=== PATIENT | male | born 1975 | race Hispanic/Latino ===

== ENCOUNTER 2020-11-15 00:42 | Emergency (ER) | payer SELFPAY ==
[2020-11-15] MEDS ORDERED: ASPIRIN 325 MG TAB PO ONE (01:02)
--- NOTE | 2020-11-15 01:02 | Emergency Department Report ---
ED Chest Pain HPI - General Chief Complaint: Chest Pain Stated Complaint: CHEST PAIN PUI?: No Time Seen by Provider: 11/15/20 00:42 Source: patient, EMS Mode of arrival: Ambulatory Limitations: No Limitations - History of Present Illness Initial Comments: Patient is a 45-year-old male who presents emergency room with complaints of chest pain, shortness of breath and anxiety. Patient states his symptoms started 6 hours ago. Patient states the chest pain is in his bilateral chest. Patient states his symptoms are better with rest and worse with movement and palpation. Patient complains of shortness of breath. Patient states that shortness of breath better with rest and worse with exertion. Patient states he is also anxious. Patient states he smokes. He states he has a history of bipolar and hypertension. Patient states he is compliant with his medications. Patient denies recent travel. Patient denies recent international travel. Patient denies exposure to the novel coronavirus. Patient denies sick contacts. Patient denies fever and chills. Patient denies cough. Patient denies diarrhea. Patient denies coming in contact with anybody with symptoms of the novel coronavirus. Patient brought in by EMS. The patient refused any type of vital signs or EKG to be done by EMS. EMS simply transfer the patient to the hospital. Report received from EMS. MD Complaint: chest pain -: Sudden Heart Score - HEART Score History: Slightly suspicious EKG: Normal Age: 45-65 Risk factors: 1-2 risk factors Troponin: < normal limit HEART Score: 2 - EKG Read Time Time EKG Completed: 00:00 EKG Read Time: 00:00 ED Review of Systems ROS: Stated complaint: CHEST PAIN Other details as noted in HPI Constitutional: denies: chills, fever Eyes: denies: eye pain, eye discharge, vision change ENT: denies: ear pain, throat pain Respiratory: shortness of breath. denies: cough, wheezing Cardiovascular: chest pain. denies: palpitations Endocrine: no symptoms reported Gastrointestinal: denies: abdominal pain, nausea, diarrhea Genitourinary: denies: urgency, dysuria Musculoskeletal: denies: back pain, joint swelling, arthralgia Skin: denies: rash, lesions Neurological: denies: headache, weakness, paresthesias, confusion Psychiatric: anxiety. denies: depression, auditory hallucinations, visual hallucinations, homicidal thoughts, suicidal thoughts Hematological/Lymphatic: denies: easy bleeding, easy bruising ED Past Medical Hx - Past Medical History Previous Medical History?: Yes Hx Hypertension: Yes Hx Psychiatric Treatment: Yes (Bipolar) Additional medical history: Bipolar, Schizophrenia - Surgical History Past Surgical History?: No - Family History Family history: no significant - Social History Smoking Status: Current Every Day Smoker Substance Use Type: None ED Physical Exam - General Limitations: No Limitations General appearance: alert, in no apparent distress - Head Head exam: Present: atraumatic, normocephalic - Eye Eye exam: Present: normal appearance - ENT ENT exam: Present: mucous membranes moist - Neck Neck exam: Present: normal inspection - Respiratory Respiratory exam: Present: normal lung sounds bilaterally. Absent: respiratory distress - Cardiovascular Cardiovascular Exam: Present: regular rate, normal rhythm. Absent: systolic murmur, diastolic murmur, rubs, gallop - GI/Abdominal GI/Abdominal exam: Present: soft, normal bowel sounds - Rectal Rectal exam: Present: deferred - Extremities Exam Extremities exam: Present: normal inspection - Back Exam Back exam: Present: normal inspection - Neurological Exam Neurological exam: Present: alert, oriented X3 - Psychiatric Psychiatric exam: Present: anxious. Absent: homicidal ideation, suicidal ideation - Skin Skin exam: Present: warm, dry, intact, normal color. Absent: rash ED Course Vital Signs 11/15/20 01:04 Temperature 98.0 F Pulse Rate 81 Respiratory 16 Rate Blood Pressure 188/116 [Right] O2 Sat by Pulse 98 Oximetry - Reevaluation(s) Reevaluation #1: Patient states that he does not want to be here anymore. Patient states he does not want to have the EKG done. Patient states he does not want blood drawn. Patient states he wants to leave. Patient states he does not want to wait to sign AMA form. I discussed the risk with patient leaving the hospital AGAINST MEDICAL ADVICE. Patient voiced understanding of the risk. Patient states he is leaving. Patient walked out the door prior to signing AMA form. 11/15/20 01:10 JENNY score - Jenny Score Age > 65: (0) No Aspirin use within the Past 7 Days: (0) No 3 or more CAD Risk Factors: (0) No 2 or more Angina events in past 24 hrs: (0) No Known CAD with more than 50% Stenosis: (0) No Elevated Cardiac Markers: (0) No ST Deviation Greater than 0.5mm: (0) No JENNY Score: 0 ED Medical Decision Making - Medical Decision Making Patient is a [id number]-year-old male that presents emergency room with complaints of chest pain, shortness of breath and anxiety. Patient states symptoms started 6 hours ago. Pain states chest pain is bilateral. Patient states his symptoms are severe. Patient states he feels nervous. Patient denies suicidal homicidal ideation. Patient denies hallucinations. Patient den ies recent drug use. Patient had a initial evaluation exam and orders were placed. Patient refused to have EKG or labs done. Patient does not want anything done to him. Patient left the hospital AGAINST MEDICAL ADVICE. Patient refused to sign AMA form. Patient prior to the patient leaving I discussed the risk with patient. Patient voiced understanding of the risks and states she still wants to leave the hospital but is not in a signed AMA form. Patient refused labs and EKG. Patient's initial vital signs were done. - Differential Diagnosis Chest pain, shortness breath, anxiety Critical care attestation.: If time is entered above; I have spent that time in minutes in the direct care of this critically ill patient, excluding procedure time. ED Disposition Clinical Impression: Shortness of breath, Anxiety Chest pain Qualifiers: Chest pain type: unspecified Qualified Code(s): R07.9 - Chest pain, unspecified Hypertension Qualifiers: Hypertension type: unspecified Qualified Code(s): I10 - Essential (primary) hypertension Disposition: LEFT AGAINST MEDICAL ADVICE Is pt being admited?: No Does the pt Need Aspirin: No Condition: Stable Instructions: Nonspecific Chest Pain, Adult, Hypertension (ED) Additional Instructions: Patient to follow-up with primary care in 2 to 3 days. Patient to return to the ER if condition worsens, changes or new symptoms arise. Referrals: PRIMARY CARE, [Primary Care Provider] - 2-3 Days Time of Disposition: 01:13
[2020-11-15 01:07] VITALS: BP 188/116
== END 2020-11-15 01:20 | disposition left against medical advice (07) ==
LOC: ED 00:42
DX: F41.9 Anxiety disorder, unspecified (principal); I10 Essential (primary) hypertension; R06.02 Shortness of breath; R07.89 Other chest pain; F31.9 Bipolar disorder, unspecified; F17.200 Nicotine dependence, unspecified, uncomplicated; F20.9 Schizophrenia, unspecified
CPT/HCPCS: 99283